=== PATIENT | female | born 1930 | race Caucasian/White ===

== ENCOUNTER 2018-02-02 18:48 | Inpatient (IN) | payer MEDICARE, BC ==
[2018-02-02 20:45] LABS: Hemoglobin 13.8 g/dL (12.0-16.0); Mean Corpuscular HGB CONC 33.4 g/dL (32.0-36.0); Mean Corpuscular Hemoglobin 35.5 pg (27.0-31.0); Mean Platelet Volume 7.2 fL (7.4-10.4); Platelet Count 253 thou/uL (130-400); RBC Distribution Width 11.4 % (11.5-14.5); Red Blood Cell (RBC) Count 3.88 mill/uL (4.20-5.40); White Blood Cell (WBC) Count 14.2 thou/uL (4.8-10.8)
[2018-02-02 20:50] LABS: INR-International Normal Ratio 1.2; PTT 26.6 SEC (22.9-36.1); Prothrombin Time 15.7 SEC (12.0-14.7)
[2018-02-02 21:01] LABS: ALT (SGPT) 300 U/L (8-55); AST (SGOT) 466 U/L (5-34); Albumin 3.4 g/dL (3.4-4.8); Alkaline Phosphatase 174 U/L (40-150); Anion Gap 13 mmol/L (10-20); BUN (Urea Nitrogen) 17 mg/dL (9.8-20.1); Bilirubin, Total 5.5 mg/dL (0.2-1.2); Calc. Creatinine Clearance 0 mL/min (70-130); Calcium 8.7 mg/dL (7.8-10.44); Carbon Dioxide 23 mmol/L (23-31); Chloride 110 mmol/L (98-107); Estimated GFR-MDRD 82; Globulin 2.6 g/dL (2.4-3.5); Glucose 183 mg/dL (83-110); Potassium 3.6 mmol/L (3.5-5.1); Sodium 142 mmol/L (136-145)
[2018-02-02 21:05] LABS: #Lymphocytes 0.5 thou/uL (1.20-3.40); #Monocytes 0.8 thou/uL (0.11-0.59); #Neutrophils 12.9 thou/uL (1.40-6.50); %Basophils 0.2 % (0.0-1.0); %Eosinophils 0.2 % (0.0-10.0); %Lymphocytes 3.5 % (21.0-51.0); %Monocytes 5.3 % (0.0-10.0); %Neutrophils 90.7 % (42.0-75.0); MDiff Complete? YES; Macrocytosis SLIGHT = 6-15 cells (100X) (0-5/hpf)
--- NOTE | 2018-02-02 21:12 | RAD ---
PORTABLE CHEST: 02/02/18 INDICATIONS: Hematemesis. COMPARISON: 07/08/16. Cardiomegaly. Streaky atelectasis and/or infiltrate in the left lung base. Mild vascular engorgement. Calcified mediastinal lymph nodes. Calcified nodule in the right mid lung is stable. Pacemaker leads unchanged. IMPRESSION: Question streaky atelectasis or infiltrate in the left lung base. Otherwise, no significant change. POS: DIONTE
[2018-02-02] MEDS ORDERED: Piperacillin/Tazobactam 4.5 GM VIAL ONE (21:46)
[2018-02-02 21:49] LABS: Bilirubin Large (Negative); Blood, Urine Negative (Negative); Clarity CLOUDY (Clear); Glucose, Urine (Dipstick) Negative (Negative); Leukocyte Small (Negative); Nitrite Positive (Negative); Protein, Urine (Dipstick) 30 mg/dL (Neg-Trace); Specific Gravity, Urine 1.036 (1.002-1.036); pH, Urine 5.5 (5.0-9.0)
[2018-02-02 21:50] LABS: Bacteria/HPF None Seen HPF (None Seen)
[2018-02-02 21:51] LABS: Pathc Cast-AUWi Flag 6.83 (0-2.49)
[2018-02-02 21:57] LABS: Hyaline Casts/LPF 0-3 HYALINE CAST LPF (0-3 Hyaline); RBC/HPF 0-3 HPF (0-3); Yeast-All Forms None Seen HPF (None Seen)
[2018-02-02] MEDS ORDERED: Ondansetron HCl/PF 4 MG/2 ML Vial ONE (22:50)
[2018-02-03] MEDS ORDERED: Ondansetron HCl/PF 4 MG/2 ML Vial IVP PRN (02:49)
[2018-02-03] MEDS ORDERED: Acetaminophen 325 MG TAB PO PRN (02:49)
[2018-02-03] MEDS ORDERED: Milk Of Magnesia 30 ML UDCUP PO PRN (02:53)
[2018-02-03] MEDS ORDERED: Nystatin Cream 30 GM TUBE TOP PRN (02:53)
[2018-02-03] MEDS ORDERED: Pantoprazole 80 MG in Sodium Chloride 0.9% 100 ML IVP SCH (03:00)
[2018-02-03] MEDS ORDERED: VANCOMYCIN IVPB PRN (03:15)
[2018-02-03 04:15] LABS: Anion Gap 12 mmol/L (10-20); BUN (Urea Nitrogen) 16 mg/dL (9.8-20.1); Calc. Creatinine Clearance 46 mL/min (70-130); Calcium 8.5 mg/dL (7.8-10.44); Carbon Dioxide 23 mmol/L (23-31); Chloride 113 mmol/L (98-107); Estimated GFR-MDRD Greater than 90; Glucose 103 mg/dL (83-110); Potassium 3.7 mmol/L (3.5-5.1); Sodium 144 mmol/L (136-145)
[2018-02-03] MEDS: Piperacillin/Tazobactam 3.375 GM in Sodium Chloride 0.9% 100 ML IVPB SCH ×4 (04:27→21:59)
[2018-02-03 05:05] LABS: Band 9 % (5-11); Hemoglobin 12.6 g/dL (12.0-16.0); Lymphocytes 6 % (21-51); MDiff Complete? YES; Mean Corpuscular HGB CONC 33.2 g/dL (32.0-36.0); Mean Corpuscular Hemoglobin 35.3 pg (27.0-31.0); Mean Platelet Volume 7.2 fL (7.4-10.4); Monocytes 6 % (0-10); Neutrophil 79 % (42-75); Platelet Count 230 thou/uL (130-400); RBC Distribution Width 11.5 % (11.5-14.5); Red Blood Cell (RBC) Count 3.56 mill/uL (4.20-5.40); White Blood Cell (WBC) Count 13.5 thou/uL (4.8-10.8)
[2018-02-03 06:21] LABS: Hemoglobin 12.6 g/dL (12.0-16.0)
[2018-02-03] MEDS: Multivit, Therapeutic 1 TAB PO SCH (08:32)
[2018-02-03] MEDS ORDERED: Pantoprazole 40 MG VIAL IVP SCH (09:00)
[2018-02-03] MEDS ORDERED: Acetaminophen 650 MG Suppository PR PRN (10:06)
--- NOTE | 2018-02-03 10:32 | HP ---
CHIEF COMPLAINT: Vomiting blood. HISTORY OF PRESENT ILLNESS: The history of present illness is taken from the patient's niece who is the medical power of mergers and acquisitions attorney as the patient has cerebral palsy and is unable to give me a history. The patient resides at [facility] and on Sunday evening, the niece says they reported that she was vomiting some dark looking material. The patient's niece went to visit her on Sunday and she s eemed fine. She sat with her and she noticed that the patient ate and she left and did not get any c alls and then on Sunday night, she was reported to have some more vomiting of darkish material and si nce this was the second time, they sent her to the emergency room for evaluation. In the ER, she was found to have an elevated white blood cell count and a chest x-ray which was significant for some po ssible infiltrate in the left base and dirty looking urine and for this reason she is being admitted. Her hemoglobin actually was around 13.8, which was in the normal range. Otherwise, I am unable to get any additional history. REVIEW OF SYSTEMS: Unobtainable due to the patient's dysarthria due to cerebral palsy. PAST MEDICAL HISTORY: Significant for atrial fibrillation, gastroesophageal reflux disease, hyperten surinder, osteoarthritis, cerebral palsy, dysarthria and dysphagia. She is on a pureed diet with thicken ed liquids. Also has history of breast cancer with right mastectomy and depression. PAST SURGICAL HISTORY: She has had a right mastectomy, pacemaker placed and a hip replacement. ALLERGIES: No known drug allergies. SOCIAL HISTORY: She is a nonsmoker and nondrinker. She resides at [facility]. She is a DNR. Her medical power mergers and acquisitions attorney, Ms. Faulkner, who is currently at the bedside. She does have other relati ves, several nieces and nephews which live in the [place] area. FAMILY HISTORY: No known medical history in the family. MEDICATIONS: Include Tylenol 650 mg q.4 hours as needed, aspirin 81 mg daily, Nuedexta 1 tablet twic e a day, emollient cream p.r.n., lactobacillus 1 capsule daily, mirtazapine 7.5 mg at bedtime, multiv itamin once a day, nystatin cream p.r.n., omeprazole 20 mg daily, MiraLax 17 grams daily. PHYSICAL EXAMINATION: GENERAL: She is alert and I am unable to assess orientation. She appears well-developed and well-no urished, although she does have some contractures associated with cerebral palsy. VITAL SIGNS: The blood pressure was 107/52, heart rate 60, respiratory rate of 20, temperature was 1 00.2 and O2 sat was 98% on room air. HEENT: Her pupils are equal, round, and reactive. Extraocular muscles are intact. Sclerae are anic teric. Throat, she has got poor dentition. Dry mucous membranes, but no lesions. NECK: There is no adenopathy, no bruits. LUNGS: She has got some mild expiratory wheeze. There were no rales. CARDIOVASCULAR: She has a normal S1, S2. I did not appreciate an S3 or S4. No murmurs, clicks, no rubs. ABDOMEN: Soft. She did grimace when I examined her abdomen. There is no appreciable rebound. She did not guard. No organomegaly. EXTREMITIES: She has got some muscle atrophy, some contractures around the knees, but no significant skin breakdown. NEUROLOGIC: Other than changes from the cerebral palsy, no changes. LABORATORY DATA: White blood cell count 13.5, hemoglobin 12.6, hematocrit is 37.9, platelet count is 230. INR is 1.2. Sodium 144, potassium 3.7, chloride is 113, CO2 is 23, BUN of 16, creatinine 0.6, glucose is 103. Urinalysis was significant for nitrite positive, large bilirubin, small leukocyte e sterase and chest x-ray was significant for some streaky atelectasis or infiltrate in the left lung b ase. ASSESSMENT AND PLAN: 1. This is a pleasant 87-year-old female that presents to the emergency room with vomiting up some c offee-ground like emesis. Her hemoglobin and hematocrit appears to be stable. She also had some x-r ay changes suggestive of possible pneumonia with a known history of previous aspiration pneumonias in the past. The plan regarding possible gastrointestinal bleed, we will continue to monitor the patie nt's hemoglobin and hematocrit. Continue IV Protonix and obtain a GI consult in the a.m.; however, I suspect with her postural changes related to the cerebral palsy, she would not be a good candidate f or endoscopy, but we will allow the GI doctor to make that decision. 2. Pneumonia, likely aspiration. She was reported to have a temperature of 100.2 and also elevated white blood cell count. Therefore, this likely represents aspiration pneumonia and we will continue Zosyn for this as she has had a history of aspiration pneumonia in the past. 3. She has a history of atrial fibrillation and a pacemaker; however, she is not on a blood thinner, but given the history of possible gastrointestinal bleed, we will go ahead and hold her aspirin ther apy. Her rate appears to be controlled. 4. Possible urinary tract infection. I suspect this may be more asymptomatic bacteriuria and I susp ect that her fever is more related to the respiratory or pulmonary infection. We will follow up with culture results and Zosyn should be adequate coverage in the interim.
[2018-02-03 12:44] LABS: Hemoglobin 11.6 g/dL (12.0-16.0)
[2018-02-03] MEDS: QUINIDINE PO SCH ×2 (13:58→21:06)
[2018-02-03] MEDS: DEXTROMETHORPHAN HBR PO SCH ×2 (13:58→21:06)
[2018-02-03] MEDS: Sodium Chloride 0.9% 1,000 ML IV SCH (14:18)
[2018-02-03 18:26] LABS: Hemoglobin 11.4 g/dL (12.0-16.0)
[2018-02-03 18:45] LABS: Bilirubin Large (Negative); Blood, Urine Negative (Negative); Clarity CLEAR (Clear); Glucose, Urine (Dipstick) Negative (Negative); Leukocyte Small (Negative); Nitrite Positive (Negative); Protein, Urine (Dipstick) Trace mg/dL (Neg-Trace); Specific Gravity, Urine 1.038 (1.002-1.036)
[2018-02-03 18:47] LABS: Bacteria/HPF None Seen HPF (None Seen); Hyaline Casts/LPF 0-3 HYALINE CAST LPF (0-3 Hyaline); Pathc Cast-AUWi Flag 0.14 (0-2.49); Squamous Epithelial 0-3 HPF (0-3)
[2018-02-03 18:49] LABS: RBC/HPF None Seen HPF (0-3)
--- NOTE | 2018-02-03 19:10 | CON ---
DATE OF CONSULTATION: 02/03/2018 HISTORY OF PRESENT ILLNESS: The patient is an 87-year-old female with cerebral palsy, who was sent over from her nursing facility because of a large amount of vomiting of dark material. She has cerebral palsy and is unable to add any history of present illness. She has a history of atrial fibrillation, but is not on anticoagulation. Reviewing the electronic medical record, she has not alba d prior history of upper GI bleed, at least not here at [facility]. PAST MEDICAL HISTORY: Cerebral palsy, atrial fibrillation, gastroesophageal reflux, hypertension, os teoarthritis, history of breast cancer. PAST SURGICAL HISTORY: Mastectomy, pacemaker, and hip replacement. ALLERGIES: No known allergies. SOCIAL HISTORY: She resides at [facility]. Does not smoke or drink. FAMILY HISTORY: None per family members. MEDICATIONS: MiraLax 17 grams p.o. daily, Prilosec 20 mg p.o. daily, multivitamin 1 p.o. daily, Sherlyn carmen 7.5 mg p.o. at bedtime, Nuedexta 1 p.o. b.i.d., aspirin 81 mg p.o. daily. REVIEW OF SYSTEMS: Unobtainable. PHYSICAL EXAMINATION: GENERAL: Obtunded white female in no acute distress. VITAL SIGNS: Temperature 99.6, pulse 61, respiratory rate 18, blood pressure 106/51. HEENT: Poor dentition. NECK: Supple. CHEST: Clear. CARDIOVASCULAR: Irregular rate and rhythm. ABDOMEN: Soft and nontender without organomegaly or masses. RECTAL: Deferred. EXTREMITIES: Normal. LABORATORY DATA: Admission white blood cell count of 14.2, hemoglobin 13.8, hematocrit of 41.3, MCV is 106, platelet count 253. Repeat hemoglobin showed a drop to 11.6. Laboratory also shows a total bilirubin of 5.5, AST of 466, ALT of 300, alkaline phosphatase of 174. Chest x-ray showed question s treaky atelectasis or infiltrate in the left lung base. ASSESSMENT: 1. Probable hematemesis - suspect gastroesophageal reflux. 2. Abnormal liver function tests. RECOMMENDATIONS: 1. Serial H&H. 2. IV Protonix. 3. Right upper quadrant ultrasound. 4. Possible EGD pending right upper quadrant ultrasound results.
[2018-02-03] MEDS ORDERED: Prevnar 13-Val Conj/PF 0.5 ML SYRINGE IM ONE (21:00)
[2018-02-03] MEDS: Pantoprazole 40 MG VIAL IVP SCH (21:03)
[2018-02-03] MEDS: Mirtazapine 15 MG TAB PO SCH (21:04)
--- NOTE | 2018-02-03 21:54 | ULT ---
RIGHT UPPER QUADRANT ULTRASOUND: Indication: elevated LFTs Comparison: Abdominal ultrasound 09-11-10 FINDINGS: There is overlying bowel gas limiting image detail. There are small reflectors seen involving the liver, most consistent with calcified granuloma. There is stable cholelithiasis of the gallbladder. The gallbladder is mildly contracted. There is suggestio n of mild wall thickening. No sonographic Mays's sign is reported. The right kidney measures 8.8 x 3.7 x 4.8 cm which is roughly stable to the comparison exam. The common bile duct measures 4.5 mm. Th e pancreas is obscured. IMPRESSION: 1. Stable cholelithiasis without overt sonographic evidence of cholecystitis. 2. Small calcifications seen within the liver likely related to prior granulomatous disease. 3. Some limitation of the exam as above. POS: BH
[2018-02-03 23:39] LABS: Hemoglobin 11.2 g/dL (12.0-16.0)
[2018-02-04] MEDS ORDERED: Vancomycin HCl 750 MG in Sodium Chloride 0.9% 250 ML 250 ML IVPB SCH (00:01)
[2018-02-04] MEDS: Piperacillin/Tazobactam 3.375 GM in Sodium Chloride 0.9% 100 ML IVPB SCH ×4 (03:58→22:49)
[2018-02-04 04:37] LABS: #Basophils 0.1 thou/uL (0.0-0.2); #Eosinphils 0.5 thou/uL (0.0-0.7); #Lymphocytes 0.9 thou/uL (1.20-3.40); #Monocytes 0.8 thou/uL (0.11-0.59); #Neutrophils 6.6 thou/uL (1.40-6.50); %Basophils 0.9 % (0.0-1.0); %Eosinophils 5.8 % (0.0-10.0); %Lymphocytes 10.3 % (21.0-51.0); %Monocytes 8.9 % (0.0-10.0); %Neutrophils 74.1 % (42.0-75.0); Hemoglobin 10.6 g/dL (12.0-16.0); Mean Corpuscular HGB CONC 32.5 g/dL (32.0-36.0); Mean Corpuscular Hemoglobin 35.6 pg (27.0-31.0); Mean Platelet Volume 7.7 fL (7.4-10.4); Platelet Count 223 thou/uL (130-400); RBC Distribution Width 11.8 % (11.5-14.5); Red Blood Cell (RBC) Count 2.99 mill/uL (4.20-5.40)
[2018-02-04 04:59] LABS: Anion Gap 9 mmol/L (10-20); BUN (Urea Nitrogen) 15 mg/dL (9.8-20.1); Calc. Creatinine Clearance 50 mL/min (70-130); Calcium 8.1 mg/dL (7.8-10.44); Carbon Dioxide 23 mmol/L (23-31); Chloride 118 mmol/L (98-107); Estimated GFR-MDRD Greater than 90; Glucose 83 mg/dL (83-110); Potassium 3.1 mmol/L (3.5-5.1); Sodium 147 mmol/L (136-145)
[2018-02-04 05:06] LABS: ALT (SGPT) 153 U/L (8-55); AST (SGOT) 149 U/L (5-34); Albumin 2.8 g/dL (3.4-4.8); Alkaline Phosphatase 101 U/L (40-150); Bilirubin, Direct 1.6 mg/dL (0.1-0.3); Bilirubin, Total 2.3 mg/dL (0.2-1.2)
[2018-02-04] MEDS: Sodium Chloride 0.9% 1,000 ML IV SCH ×2 (06:32→15:28)
[2018-02-04] MEDS: QUINIDINE PO SCH ×2 (08:56→21:09)
[2018-02-04] MEDS: Multivit, Therapeutic 1 TAB PO SCH (08:56)
[2018-02-04] MEDS: DEXTROMETHORPHAN HBR PO SCH ×2 (08:56→21:09)
[2018-02-04] MEDS: Pantoprazole 40 MG VIAL IVP SCH ×2 (09:21→21:08)
--- NOTE | 2018-02-04 11:10 | PRG ---
DATE OF SERVICE: 02/04/2018 SUBJECTIVE: The patient is denying abdominal pain. She has had no further nausea and vomiting. OBJECTIVE: VITAL SIGNS: Temperature 97.8, pulse 60, respiratory rate 18, blood pressure 138/73. CHEST: Clear. CARDIOVASCULAR: Regular rate and rhythm. ABDOMEN: Soft, nontender, without organomegaly or masses. LABORATORY DATA: Shows hemoglobin 10.6, hematocrit 32.7, white blood cell count is 9.0. Chemistries show a sodium 147, potassium 3.1, chloride 118, total bilirubin 2.3, AST 149, ALT of 153. Abdominal ultrasound shows cholelithiasis and a common bile duct of 4.5 mm. ASSESSMENT: 1. Hematemesis. 2. Abnormal liver function tests, possibly a passed stone or underlying liver disease. The numbers seem to be improving. RECOMMENDATIONS: 1. Serial H&H. 2. IV Protonix. 3. EGD tomorrow. 4. Serial LFTs.
--- NOTE | 2018-02-04 12:06 | PDOC.PN ---
- Subjective Encounter Start Date: 02/04/18 Encounter Start Time: 12:05 Ms. Jaimes was seen today for follow-up of abdominal pain. She has not had any further vomiting. - Objective Resuscitation Status: Resuscitation Status DNR:Do Not Resuscitate MAR Reviewed: Yes Vital Signs & Weight: Vital Signs (12 hours) Temp Pulse Resp BP Pulse Ox 02/04/18 09:15 97.8 F 60 18 138/73 93 L 02/04/18 03:41 97.6 F 73 20 127/58 L 93 L Weight Weight 107 lb I&O: 02/03/18 02/04/18 02/05/18 06:59 06:59 06:59 Intake Total 100 1542 Output Total 550 Balance 100 992 Result Diagrams: 02/04/18 03:54 02/04/18 03:54 Phys Exam - Physical Examination HEENT: PERRLA Respiratory: no rales, no rhonchi, wheezing present Cardiovascular: RRR, no significant murmur, no rub Gastrointestinal: soft Musculoskeletal: no edema + contractures of the lower extremities Dx/Plan (1) Vomiting Code(s): R11.10 - VOMITING, UNSPECIFIED Status: Acute (2) Aspiration pneumonia Code(s): J69.0 - PNEUMONITIS DUE TO INHALATION OF FOOD AND VOMIT Status: Acute (3) Cerebral palsy Code(s): G80.9 - CEREBRAL PALSY, UNSPECIFIED Status: Acute (4) Atrial fibrillation Code(s): I48.91 - UNSPECIFIED ATRIAL FIBRILLATION Status: Chronic (5) Hypertension Code(s): I10 - ESSENTIAL (PRIMARY) HYPERTENSION Status: Chronic - Plan * Vomiting- GI evaluation is in progress. Abdominal ultrasound was done for elevated LFT's and she did have evidence for cholelithiasis * Plan is for EGD tomorrow * Aspiration Pneumonia- Continue Zosyn * AFIB - her heart rate is stable .
[2018-02-04 12:07] LABS: Hemoglobin 11.4 g/dL (12.0-16.0)
--- NOTE | 2018-02-04 15:13 | PQF ---
CLINICAL DOCUMENTATION IMPROVEMENT CLARIFICATION FORM: ICD-10 Updated PLEASE DO AN ADDENDUM TO THE PROGRESS NOTE WITH ANY DOCUMENTATION UPDATES OR ADDITIONS AND CARRY THROUGH TO DC SUMMARY. THANK YOU. DATE: 02/04/18 ATTN : DR. PORTER Please exercise your independent, professional judgment in responding to the clarification form. Clinical indicators are provided on the bottom of this form for your review Please check appropriate box(s): [ ] Hemiplegia Specify: [ ] Non dominant side [ ] Dominant side Status: [ ] Complete [ ] Incomplete [ ] Paraplegia Specify: [ ] Non dominant side [ ] Dominant side Status: [ ] Complete [ ] Incomplete [ ] Quadriplegia [ ] Functional Quadriplegia (specify underlying cause) [ ] Weakness (please specify anatomical area) Specify: [ ] Non dominant side [ ] Dominant side [ ] Other diagnosis [ ] Unable to determine In addition, please specify: Present on Admission (POA): [ ] Yes [ ] No [ ] Unable to determine CLINICAL INDICATORS - SIGNS / SYMPTOMS / LABS BED BOUND PER ER NOTE PT CONTRACTED IN ARMS AND LEGS PER NURSES NOTE INCONTINENCE PER NURSING ASSESSMENT "VERY LIMITED MOBILITY" PER NURSING ASSESSMENT INABILITY TO AMBULATE PER ER NOTE RISKS: CEREBRAL PALSY TREATMENT: TURN Q2 HOURS X 2 ASSIST MURRAY CATHETER BRIEF HYGIENE CARE PROVIDED BY NURSING NPO (This form is maintained as a part of the permanent medical record) 2014 [employer]. All Rights Reserved [email or web address] Office: [phone] [facility]
[2018-02-04 18:16] LABS: Hemoglobin 11.8 g/dL (12.0-16.0)
[2018-02-04] MEDS: Mirtazapine 15 MG TAB PO SCH (21:06)
[2018-02-05] MEDS: Sodium Chloride 0.9% 1,000 ML IV SCH ×2 (02:26→20:27)
[2018-02-05 05:08] LABS: ALT (SGPT) 130 U/L (8-55); AST (SGOT) 78 U/L (5-34); Albumin 3.4 g/dL (3.4-4.8); Alkaline Phosphatase 114 U/L (40-150); Bilirubin, Direct 1.2 mg/dL (0.1-0.3); Bilirubin, Total 2.1 mg/dL (0.2-1.2); Protein, Total 6.2 g/dL (6.0-8.3)
[2018-02-05] MEDS: Piperacillin/Tazobactam 3.375 GM in Sodium Chloride 0.9% 100 ML IVPB SCH ×4 (05:12→22:12)
[2018-02-05] MEDS ORDERED: Lorazepam 2 MG/ML VIAL ONE (06:33)
[2018-02-05] MEDS ORDERED: Lorazepam 2 MG/ML VIAL SLOW IVP SCH (06:45)
[2018-02-05] MEDS: Multivit, Therapeutic 1 TAB PO SCH (08:33)
[2018-02-05] MEDS: DEXTROMETHORPHAN HBR PO SCH ×2 (08:34→20:23)
[2018-02-05] MEDS: QUINIDINE PO SCH ×2 (08:34→20:23)
[2018-02-05] MEDS: Pantoprazole 40 MG VIAL IVP SCH ×2 (08:34→20:23)
--- NOTE | 2018-02-05 15:24 | PDOC.PN ---
- Subjective Encounter Start Date: 02/05/18 Encounter Start Time: 15:22 Ms. Jaimes was seen today in follow-up. She had a hard morning. She became hypoxic, and had a lot of upper airway noise. She was placed on a venti-mask, and suctioned, and given a douneb treatment. She is more comfortable now. - Objective Resuscitation Status: Resuscitation Status DNR:Do Not Resuscitate MAR Reviewed: Yes Vital Signs & Weight: Vital Signs (12 hours) Temp Pulse Resp BP Pulse Ox 02/05/18 14:47 97.6 F 60 22 H 167/94 H 85 L 02/05/18 14:19 60 22 H 85 L 02/05/18 13:41 97.6 F 60 12 174/75 H 92 L 02/05/18 08:00 98.4 F 64 28 H 89 L 02/05/18 07:38 98.4 F 64 28 H 141/64 H 89 L 02/05/18 06:04 97.6 F 72 30 H 183/99 H 87 L Weight Weight 107 lb I&O: 02/04/18 02/05/18 02/06/18 06:59 06:59 06:59 Intake Total 1542 584 Output Total 550 425 Balance 992 159 Result Diagrams: 02/04/18 18:09 02/04/18 03:54 Phys Exam - Physical Examination HEENT: PERRLA Respiratory: wheezing present + tight wheezing, + rhonchi, Cardiovascular: RRR, no significant murmur, no rub Gastrointestinal: soft, non-tender, positive bowel sounds Musculoskeletal: no edema Dx/Plan (1) Vomiting Code(s): R11.10 - VOMITING, UNSPECIFIED Status: Acute (2) Aspiration pneumonia Code(s): J69.0 - PNEUMONITIS DUE TO INHALATION OF FOOD AND VOMIT Status: Acute (3) Cerebral palsy Code(s): G80.9 - CEREBRAL PALSY, UNSPECIFIED Status: Acute (4) Atrial fibrillation Code(s): I48.91 - UNSPECIFIED ATRIAL FIBRILLATION Status: Chronic (5) Hypertension Code(s): I10 - ESSENTIAL (PRIMARY) HYPERTENSION Status: Chronic - Plan * Acute on chronic respiratory failure- likely from chronic aspiration and or reflux. I suspect this will be an ongoing problem * Continue Zosyn, Duonebs, and suctioning as needed * I suspect given todays events the EGD will be postponed * HTN- a little elevated.
--- NOTE | 2018-02-05 15:40 | PDOC.EVN ---
Event Note - Event Note Event Note: I spoke with the patient's niece, and updated her on the events of this morning. I suspect the patient's blood pressure is elevated due to the stress of the acute repsiratory event- will monitor
[2018-02-05] MEDS: Mirtazapine 15 MG TAB PO SCH (20:23)
--- NOTE | 2018-02-05 20:26 | PRG ---
DATE OF SERVICE: 02/05/2018 SUBJECTIVE: The patient is without new complaints. She had a respiratory event today and was seen b y the Hospitalist. OBJECTIVE: VITAL SIGNS: Temperature 97.6, pulse 60, respiratory rate 22, blood pressure 167/94. CARDIOVASCULAR: Regular rate and rhythm. CHEST: Show bilateral wheezes. ABDOMEN: Benign. LABORATORY DATA: Hemoglobin 11.8. Chemistry showed total bilirubin of 2.1, AST 78, ALT 130. ASSESSMENT: 1. Hematemesis - no recurrence of vomiting of blood. 2. Cerebral palsy. 3. Atrial fibrillation. 4. Abnormal liver function tests - this could be secondary to hepatic congestion. RECOMMENDATIONS: 1. Cancel EGD. 2. Continue proton-pump inhibitor. 3. Resume diet.
[2018-02-06] MEDS: Piperacillin/Tazobactam 3.375 GM in Sodium Chloride 0.9% 100 ML IVPB SCH ×3 (03:47→16:35)
[2018-02-06 06:10] LABS: Band 10 % (5-11); Eosinophils 2 % (0-10); Hemoglobin 13.9 g/dL (12.0-16.0); Lymphocytes 6 % (21-51); MDiff Complete? YES; Mean Corpuscular Hemoglobin 33.2 pg (27.0-31.0); Mean Platelet Volume 7.9 fL (7.4-10.4); Monocytes 4 % (0-10); Neutrophil 78 % (42-75); Platelet Count 217 thou/uL (130-400); RBC Distribution Width 11.8 % (11.5-14.5); Red Blood Cell (RBC) Count 4.18 mill/uL (4.20-5.40); White Blood Cell (WBC) Count 10.3 thou/uL (4.8-10.8)
[2018-02-06 07:31] VITALS: TEMP 98.5
[2018-02-06] MEDS: Pantoprazole 40 MG VIAL IVP SCH (08:15)
[2018-02-06] MEDS: Multivit, Therapeutic 1 TAB PO SCH (10:01)
[2018-02-06] MEDS: DEXTROMETHORPHAN HBR PO SCH (10:01)
[2018-02-06] MEDS: QUINIDINE PO SCH (10:01)
[2018-02-06] MEDS: Sodium Chloride 0.9% 1,000 ML IV SCH (13:00)
--- NOTE | 2018-02-06 15:35 | PDOC.PN ---
- Subjective Encounter Start Date: 02/06/18 Encounter Start Time: 15:33 was seen today in follow-up for possible GI bleed. She is resting, and appears comfortable. - Objective Resuscitation Status: Resuscitation Status DNR:Do Not Resuscitate MAR Reviewed: Yes Vital Signs & Weight: Vital Signs (12 hours) Temp Pulse Resp BP Pulse Ox 02/06/18 08:00 98.5 F 66 16 100 02/06/18 07:28 98.5 F 66 16 155/69 H 100 02/06/18 05:13 121 H 28 H 98 Weight Weight 107 lb I&O: 02/05/18 02/06/18 02/07/18 06:59 06:59 06:59 Intake Total 584 1110 Output Total 425 350 Balance 159 760 Result Diagrams: 02/06/18 04:32 02/04/18 03:54 Phys Exam - Physical Examination HEENT: PERRLA + upper airway noise, no rales, no rhonchi Cardiovascular: RRR, no significant murmur Gastrointestinal: soft, non-tender, positive bowel sounds Musculoskeletal: no edema Dx/Plan (1) Vomiting Code(s): R11.10 - VOMITING, UNSPECIFIED Status: Acute (2) Aspiration pneumonia Code(s): J69.0 - PNEUMONITIS DUE TO INHALATION OF FOOD AND VOMIT Status: Acute (3) Cerebral palsy Code(s): G80.9 - CEREBRAL PALSY, UNSPECIFIED Status: Acute (4) Atrial fibrillation Code(s): I48.91 - UNSPECIFIED ATRIAL FIBRILLATION Status: Chronic (5) Hypertension Code(s): I10 - ESSENTIAL (PRIMARY) HYPERTENSION Status: Chronic - Plan * Vomiting, and possible GI bleed- these symptoms have resolved * Her H&H has been stable * Pneumonia- the antibiotic can be changed to Augmentin * She is [facility] for [facility] to the [facility]
[2018-02-06 18:27] VITALS: BP 160/88
--- NOTE | 2018-02-07 01:34 | DIS ---
DATE OF ADMISSION: 02/02/2018 DATE OF DISCHARGE: 02/06/2018 DISCHARGE DISPOSITION: Back to [facility]. DISCHARGE DIAGNOSES: 1. Aspiration pneumonia. 2. Possible gastrointestinal bleed. 3. Cerebral palsy. 4. History of pacemaker replacement. 5. History of breast cancer and right mastectomy. DISCHARGE MEDICATIONS: Augmentin 250 mg per 5 mL 3 times a day for 7 days, Tylenol 650 mg q.4 hours as needed, aspirin 81 mg daily, Lactobacillus 1 capsule daily, magnesium hydroxide daily, mirtazapine 7.5 mg at bedtime, Theragran-M multivitamin daily, omeprazole 20 mg daily, Nystatin cream p.r.n. and MiraLax 17 grams daily. CODE STATUS: DNR. ALLERGIES: No known drug allergies. PROCEDURES DONE DURING ADMISSION: The patient had an abdominal ultrasound showing stable cholelithia sis without overt sonographic evidence of cholecystitis. There are small calcifications seen within the liver likely related to prior granulomatous disease. HOSPITAL COURSE: Ms. Jaimes is a pleasant 87-year-old female who was sent from the shelter aft er it was noted that she had vomited on two separate occasions 2 days. She was noted to have some da rkish looking material from the vomitus and there was concern for GI bleed. She was admitted and her H&H was monitored and remained stable during the course of the next several days in the hospital. C hest x-ray demonstrated some left lower lobe streaky atelectasis versus infiltrate change and it was felt that she likely aspirated. She did have some fever on admission. She was treated with IV Zosyn initially and then this was transitioned to Augmentin at the time of discharge, there was an attempt to have upper endoscopy done; however, the patient had an episode of acute on chronic respiratory fa ilure, on the day of the procedure and it was canceled and the decision was made not to pursue this a s this is unlikely to change her therapy much and as such she was stabilized and able to be discharge d back to the shelter, given her recurrent aspiration. She is at high risk in the future.
== END 2018-02-06 19:03 | DRG 377 ==
LOC: ERS 18:48 → 2NO 23:15 → T4-A 02-04 15:57 → 2NO 02-04 16:13 → T4-A 02-04 16:49
PROVIDERS: ADMIT Hospitalist; ATTEND Hospitalist
DX: K92.0 Hematemesis (principal); J69.0 Pneumonitis due to inhalation of food and vomit; J96.20 Acute and chronic respiratory failure, unspecified whether with hypoxia or hypercapnia; N39.0 Urinary tract infection, site not specified; K21.9 Gastro-esophageal reflux disease without esophagitis; G80.9 Cerebral palsy, unspecified; I48.91 Unspecified atrial fibrillation; Z95.0 Presence of cardiac pacemaker; Z85.3 Personal history of malignant neoplasm of breast; Z90.11 Acquired absence of right breast and nipple; Z53.8 Procedure and treatment not carried out for other reasons; I10 Essential (primary) hypertension; M19.90 Unspecified osteoarthritis, unspecified site; R13.10 Dysphagia, unspecified
CPT/HCPCS: 36415; 51701; 71045; 76705; 80048; 80053; 80076; 81001; 81003; 81015; 82274; 82550; 83605; 85018; 85025; 85610; 85730; 86850; 86900; 86901; 87040; 87086; 93005; 94640; 94760; 96361; 96365; 96367; 96375; A4353; C9113; G8996-GN-CK; G8997-GN-CK; J2060; J2405; J2543; J3370; J7050; J7620